=== PATIENT | female | born 1995 | race Caucasian/White ===

== ENCOUNTER 2024-11-30 20:24 | Emergency (ER) | payer OTHER ==
[2024-11-30 20:30] VITALS: BP 111/71; PULSE 77; RESP 19; TEMP 98.1; BMI 29.2
[2024-11-30] MEDS ORDERED: ACETAMINOPHEN 500 MG TABLET (FP) ONE (21:06)
[2024-11-30] MEDS ORDERED: CEPHALEXIN MONOHYDRATE 500 MG CAPSULE (UD) ONE (21:06)
[2024-11-30] MEDS ORDERED: DIPHTH,PERTUSS(ACELL),TET 0.5 ML DISP.SYRIN IM ONE (21:07)
[2024-11-30] MEDS: ACETAMINOPHEN 500 MG TABLET (FP) PO ONE (21:13)
[2024-11-30] MEDS: CEPHALEXIN MONOHYDRATE 500 MG CAPSULE (UD) PO ONE (21:13)
[2024-11-30] MEDS: DIPHTH,PERTUSS(ACELL),TET 0.5 ML DISP.SYRIN IM ONE (21:13)
[2024-12-01] MEDS ORDERED: BACITRACIN ZINC 15 GM TUBE TOPICAL OINTMENT ONE (00:44)
[2024-12-01] MEDS ORDERED: LIDOCAINE 2.5%/PRILOCAINE 2.5% (5 Gram/TUBE) TP ONE (00:48)
[2024-12-01] MEDS: LIDOCAINE 2.5%/PRILOCAINE 2.5% (5 Gram/TUBE) TP ONE (00:55)
[2024-12-01] MEDS: IBUPROFEN 400 MG TABLET (FP) PO ONE (00:55)
[2024-12-01] MEDS: BACITRACIN ZINC 15 GM TUBE TOPICAL OINTMENT TP ONE (00:55)
[2024-12-01] MEDS ORDERED: IBUPROFEN 400 MG TABLET (FP) PO ONE (00:56)
== END 2024-12-01 01:44 | disposition home or self-care (01) ==
LOC: JERFT 20:24 → JER 20:24
PROC: 3E0234Z Introduction of Serum, Toxoid and Vaccine into Muscle, Percutaneous Approach (ICD-10-PCS; principal; 2024-11-30)
DX: S91.202A Unspecified open wound of left great toe with damage to nail, initial encounter (principal); Z23 Encounter for immunization; W01.0XXA Fall on same level from slipping, tripping and stumbling without subsequent striking against object, initial encounter; Y92.009 Unspecified place in unspecified non-institutional (private) residence as the place of occurrence of the external cause
CPT/HCPCS: 90471; 90715; 99284-25